=== PATIENT | female | born 1985 | race Two or more races ===

== ENCOUNTER 2019-03-10 12:18 | Emergency (ER) | payer MEDICAID ==
[2019-03-10 12:25] VITALS: BP 116/70
--- NOTE | 2019-03-10 13:14 | ER Document Report ---
HPI - HPI Patient complains to provider of: rash Time Seen by Provider: 03/10/19 13:03 Onset: Other Severity: Mild Pain Level: 1 Context: 33-year-old female presents with a rash to her her left foot, left third fourth fifth toe. Reports it started approximately 1 month ago after she was walking around barefooted outside. Reports she had a pool republican. No other symptoms such as fever vomiting diarrhea. She does report that he had some blisters when it first started. Thought it was a bug bite. Denies fever vomiting diarrhea. Scaling skin noted to the third fourth fifth in between webs of the toe. And around anterior and posterior of the foot. She reports that she applied liquid antifungal nail medicine with a brush once and it irritated her skin so she did not use anymore. Associated Symptoms: None Exacerbated by: Denies Relieved by: Denies Similar symptoms previously: No Recently seen / treated by doctor: No - CONSTITUTIONAL Constitutional: DENIES: Fever, Chills - GASTROINTESTINAL Gastrointestinal: DENIES: Abdominal Pain, Black / Bloody Stools - REPRODUCTIVE Reproductive: REPORTS: : Past Medical History - General Information source: Patient Last Menstrual Period: 25 weeks - Social History Smoking Status: Never Smoker Cigarette use (# per day): No Frequency of alcohol use: None Drug Abuse: None Lives with: Family Family History: None Patient has suicidal ideation: No Patient has homicidal ideation: No - Medical History Medical History: Negative Renal/ Medical History: Denies: Hx Peritoneal Dialysis Surgical Hx: Negative Vertical Provider Document - CONSTITUTIONAL Agree With Documented VS: Yes Exam Limitations: No Limitations General Appearance: WD/WN, No Apparent Distress - INFECTION CONTROL TRAVEL OUTSIDE OF THE [place] IN LAST 30 DAYS: No - HEENT HEENT: Atraumatic, Normocephalic - NECK Neck: Supple - RESPIRATORY Respiratory: No Respiratory Distress - MUSCULOSKELETAL/EXTREMETIES Musculoskeletal/Extremeties: MAEW, FROM, Non-Tender - NEURO Level of Consciousness: Awake, Alert, Appropriate Motor/Sensory: No Motor Deficit - DERM Integumentary: Warm, Dry, Rash Adult Front & Back Diagram: 1 - Patient with what appears to be fungal infection athlete's foot to the left fifth and fourth toe and in between the webs of the third fourth and fifth toe no erythema no swelling no blisters skin whitish,scaling Course - Re-evaluation Re-evalutation: 03/10/19 13:26 33-year-old female with what appears to be athlete's foot. She was instructed on antifungal cream. She was instructed to follow-up with her primary care provider as scheduled and also follow-up with the net lead developer for continuation of symptoms or worsening. She verbalized understanding on all instructions. - Vital Signs Vital signs: Temp Pulse Resp BP Pulse Ox 98.0 F 101 H 18 116/70 98 03/10/19 12:24 03/10/19 12:24 03/10/19 12:24 03/10/19 12:24 03/10/19 12:24 Discharge - Discharge Clinical Impression: Rash, Athlete's foot on left Condition: Stable Disposition: HOME, SELF-CARE Instructions: Athletes Foot ([facility]), Topical Antifungal ([facility]) Additional Instructions: *You have been treated rash to your left foot, athlete's foot *Applied Lamisil as directed on the container *Monitor your foot for signs of infection such as redness swelling warmth discharge *Keep your feet clean dry well wear clean socks *Follow up with a primary care provider as scheduled *Return to ED for signs of infection, worsening condition, changes, needs Prescriptions: Terbinafine HCl [Lamisil At] 12 gm TP BID #1 cream..g.
== END 2019-03-10 13:15 | disposition home or self-care (01) ==
LOC: ER 12:18
DX: O98.812 Other maternal infectious and parasitic diseases complicating pregnancy, second trimester (principal); B35.3 Tinea pedis; Z3A.25 25 weeks gestation of pregnancy
CPT/HCPCS: 99282

== ENCOUNTER 2020-03-30 11:55 | Outpatient (CLI) | payer MEDICAID ==
--- NOTE | 2020-03-30 13:22 | Non Stress Test Report ---
Non Stress Test Datetime Report Generated by CPN: 03/30/2020 13:21 DEMOGRAPHIC Test Number: 1 EGA NST: 33.4 INDICATION Indication for Study (NST) Other: tachycardia in office VITAL SIGNS Temperature - NST: 98.2 Pulse - NST: 102 RESP - NST: 16 NBPSYS NST: 96 NBPDIA NST: 54 MONITORING Monitor Explained: Monitor Explained; Test Explained; Patient Verbalized Understanding Time on Monitor: 03/30/2020 12:20 Time off Monitor: 03/30/2020 13:14 NST Duration: 54 NST INTERVENTIONS NST Interventions: PO Hydration; Reposition Patient Physician Notified NST: N Singh BABY A: [id number] BABY A Movement : Present Contraction Frequency : x1 FHR Baseline : 130 Accelerations : 15X15 Decelerations : None Variability : Moderate 6-25bpm NST Review: Meets Criteria for Reactive NST NST Review and Verified By : Sobeida Singleton RN NST Results: Reactive NST REPORT Report Trigger: Send Report
== END 2020-03-30 13:22 | disposition home or self-care (01) ==
LOC: LC 11:55
PROVIDERS: ATTEND Obstetrics & Gynecology
DX: O36.8330 Maternal care for abnormalities of the fetal heart rate or rhythm, third trimester, not applicable or unspecified (principal); Z3A.33 33 weeks gestation of pregnancy

== ENCOUNTER 2020-05-08 21:06 | Outpatient (CLI) | payer MEDICAID ==
[2020-05-08 22:19] LABS: APPEARANCE,URINE CLOUDY; BILIRUBIN,URINE NEGATIVE (NEGATIVE); COLOR,URINE YELLOW; GLUCOSE, URINE NEGATIVE (NEGATIVE); KETONES,URINE NEGATIVE (NEGATIVE); LEUKOCYTE ESTERASE,URINE MODERATE (NEGATIVE); NITRITE,URINE NEGATIVE (NEGATIVE); PROTEIN,URINE NEGATIVE (NEGATIVE); URINE SPECIFIC GRAVITY 1.012; UROBILINOGEN,URINE NEGATIVE mg/dL (<2.0)
[2020-05-08 22:41] LABS: URINE AMPHETAMINES SCREEN NEGATIVE; URINE BARBITURATES SCREEN NEGATIVE; URINE BENZODIAZEPINES SCREEN NEGATIVE; URINE COCAINE SCREEN NEGATIVE; URINE MARIJUANA (THC) SCREEN NEGATIVE; URINE METHADONE SCREEN NEGATIVE; URINE PHENCYCLIDINE SCREEN NEGATIVE
== END 2020-05-08 23:40 | disposition home or self-care (01) ==
LOC: LC 21:06
PROVIDERS: ATTEND Obstetrics & Gynecology
DX: O47.1 False labor at or after 37 completed weeks of gestation (principal); Z3A.39 39 weeks gestation of pregnancy
CPT/HCPCS: 59025; 80307; 81005; 84112

== ENCOUNTER 2020-05-10 16:20 | Outpatient (CLI) | payer MEDICAID ==
--- NOTE | 2020-05-10 16:27 | Non Stress Test Report ---
Non Stress Test Datetime Report Generated by CPN: 05/10/2020 16:27 DEMOGRAPHIC EGA NST: 39.1 INDICATION Indication for Study (NST) Other: labor check;r/o srom URINE RESULTS Urine Protein, NST: Negative Urine Ketones - NST: Negative Urine Glucose - NST: Negative Urine Blood - NST: Negative MONITORING Monitor Explained: Monitor Explained; Test Explained; Patient Verbalized Understanding Time on Monitor: 05/08/2020 21:30 Time off Monitor: 05/08/2020 22:59 NST Duration: 89 NST INTERVENTIONS NST Interventions: PO Hydration; Reposition Patient Physician Notified NST: Dr Chavez BABY A: [id number] BABY A Movement : Present Contraction Frequency : Irregular FHR Baseline : 120 Accelerations : 15X15 Decelerations : None Variability : Moderate 6-25bpm NST Review: Meets Criteria for Reactive NST NST Review and Verified By : Braulio Demarco RN NST Results: Reactive NST REPORT Report Trigger: Send Report
[2020-05-10 18:18] LABS: HEMOGLOBIN 10.6 g/dL (12.0-15.5); MEAN CORPUSCULAR HEMOGLOBIN 27.5 pg (27.0-33.4); MEAN CORPUSCULAR HGB CONC 33.1 g/dL (32.0-36.0); MEAN CORPUSCULAR VOLUME 83 fl (80-97); PLATELET COUNT 129 10^3/uL (150-450); RED BLOOD COUNT 3.84 10^6/uL (3.72-5.28); RED CELL DISTRIBUTION WIDTH 22.7 % (11.5-14.0); WHITE BLOOD COUNT 9.3 10^3/uL (4.0-10.5)
--- NOTE | 2020-05-10 18:28 | Non Stress Test Report ---
Non Stress Test Datetime Report Generated by CPN: 05/10/2020 18:27 DEMOGRAPHIC EGA NST: 39.3 INDICATION Indication for Study (NST) Other: Vaginal bleeding VITAL SIGNS Temperature - NST: 97.1 Pulse - NST: 83 RESP - NST: 18 NBPSYS NST: 101 NBPDIA NST: 66 MONITORING Monitor Explained: Monitor Explained; Test Explained; Patient Verbalized Understanding Time on Monitor: 05/10/2020 17:10 Time off Monitor: 05/10/2020 17:30 NST Duration: 20 NST INTERVENTIONS NST Interventions: PO Hydration BABY A Movement : Present Contraction Frequency : Occasional FHR Baseline : 135 Accelerations : 15X15 Decelerations : None Variability : Moderate 6-25bpm NST Review: Meets Criteria for Reactive NST NST Review and Verified By : Kimberly Dias RN NSEmory Results: Reactive NST REPORT Report Trigger: Send Report
== END 2020-05-10 18:25 | disposition home or self-care (01) ==
LOC: LC 16:20
PROVIDERS: ATTEND Obstetrics & Gynecology Gynecology
DX: O46.93 Antepartum hemorrhage, unspecified, third trimester (principal); Z3A.39 39 weeks gestation of pregnancy
CPT/HCPCS: 36415; 59025; 85027

== ENCOUNTER 2020-05-11 11:55 | Outpatient (CLI) | payer MEDICAID ==
[2020-05-11 12:55] LABS: APPEARANCE,URINE SLIGHTLY-CLOUDY; BILIRUBIN,URINE NEGATIVE (NEGATIVE); COLOR,URINE YELLOW; GLUCOSE, URINE NEGATIVE (NEGATIVE); KETONES,URINE NEGATIVE (NEGATIVE); LEUKOCYTE ESTERASE,URINE NEGATIVE (NEGATIVE); NITRITE,URINE NEGATIVE (NEGATIVE); PROTEIN,URINE NEGATIVE (NEGATIVE); URINE SPECIFIC GRAVITY 1.008; UROBILINOGEN,URINE NEGATIVE mg/dL (<2.0)
[2020-05-11 13:23] LABS: URINE AMPHETAMINES SCREEN NEGATIVE; URINE BARBITURATES SCREEN NEGATIVE; URINE BENZODIAZEPINES SCREEN NEGATIVE; URINE COCAINE SCREEN NEGATIVE; URINE MARIJUANA (THC) SCREEN NEGATIVE; URINE METHADONE SCREEN NEGATIVE; URINE PHENCYCLIDINE SCREEN NEGATIVE
[2020-05-11] MEDS ORDERED: HYDROXYZINE PAMOATE 50 MG CAPSULE PO ONE (13:39)
== END 2020-05-11 13:43 | disposition home or self-care (01) ==
LOC: LC 11:55
PROVIDERS: ATTEND Obstetrics & Gynecology
DX: O46.93 Antepartum hemorrhage, unspecified, third trimester (principal); O47.1 False labor at or after 37 completed weeks of gestation; Z3A.39 39 weeks gestation of pregnancy
CPT/HCPCS: 59025; 80307; 81005

== ENCOUNTER 2020-05-13 21:51 | Inpatient (IN) | payer MEDICAID ==
--- NOTE | 2020-05-13 21:53 | Non Stress Test Report ---
Non Stress Test Datetime Report Generated by CPN: 05/13/2020 21:53 DEMOGRAPHIC Test Number: 1 EGA NST: 39.4 INDICATION Indication for Study (NST) Other: Rule out labor VITAL SIGNS Temperature - NST: 97.1 Pulse - NST: 87 RESP - NST: 22 NBPSYS NST: 98 NBPDIA NST: 58 MONITORING Monitor Explained: Monitor Explained; Test Explained; Patient Verbalized Understanding Time on Monitor: 05/11/2020 12:16 Time off Monitor: 05/11/2020 13:27 NST Duration: 71 NST INTERVENTIONS NST Interventions: PO Hydration Physician Notified NST: Terry Bagley CNM BABY A: [id number] Movement : Present Contraction Frequency : Occasional with Irritabilty FHR Baseline : 115 Accelerations : 15X15 Decelerations : None Variability : Moderate 6-25bpm NST Review: Meets Criteria for Reactive NST NST Review and Verified By : ISIS Levy NST Results: Reactive NST REPORT Report Trigger: Send Report
[2020-05-13] MEDS ORDERED: LIDOCAINE 1% INJ-PF (10 MG/ML) 30 ML SDV ONE (22:00)
[2020-05-13] MEDS ORDERED: OXYTOCIN 10 UNIT/ML VIAL ONE (22:00)
[2020-05-13] MEDS ORDERED: MISOPROSTOL 0.2 MG TABLET ONE (22:00)
[2020-05-13] MEDS ORDERED: OXYTOCIN/0.9 % SODIUM CHLORIDE 30 UNIT/500 ML RTUINJ ONE (22:01)
[2020-05-13] MEDS ORDERED: RINGERS SOLUTION,LACTATED 1,000 ML IV ONE (22:11)
[2020-05-13] MEDS ORDERED: RINGERS SOLUTION,LACTATED 1,000 ML IV PRN (22:11)
[2020-05-13] MEDS ORDERED: BENZOCAINE/MENTHOL AEROSOL SPRAY 56 ML ONE (22:34)
[2020-05-13] MEDS ORDERED: IBUPROFEN 800 MG TABLET ONE (22:34)
[2020-05-13] MEDS ORDERED: ACETAMINOPHEN WITH CODEINE #3 TABLET ONE (22:34)
--- NOTE | 2020-05-13 22:37 | Admission Physical ---
Datetime Report Generated by CPN: 05/13/2020 22:37 CURRENT ADMISSION Chief Complaint: Uterine Contractions Indication for Induction: Not Applicable Admit Impression : Term, Intrauterine ; Active Labor; Intact Membranes Admit Plan: Admit to Unit; Initiate Labor Protocol ALLERGIES Medication Allergies: No Medication Allergies: No Known Allergies (05/11/2020) Latex: No Latex Allergies OBSTETRICAL HISTORY EDC: 05/14/2020 00:00 : 4 Para: 2 Term: 2 : 0 SAB: 0 IAB: 1 Ectopic: 0 Livin Cesareans: 0 VBACs: 0 Multiple Births: 0 Gestational Diabetes: No Rh Sensitization: No Incompetent Cervix: No AISHA: No Infertility: No ART Treatment: No Uterine Anomaly: No IUGR: No Hx Previous C/S: No Macrosomia: No Hx Loss/Stillborn: No PIH: No Hx : No Placenta Previa/Abruption: No Depression/PP Depression: No PTL/PROM: No Post Hemorrhage: No Current Procedures: Ultrasound; NST Obstetrical History Comments: G1: EAB 2005 G2: 09/09/2014; , male 5#5 oz G3: 05/2019; , female, 7# 10 oz G4: current (anemia) SEE RECORDS Alcohol: No Marijuana : No Cocaine: No Other Illicit Drugs: No Cigarettes: Never Smoker. 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 Surgery: No Heart Disease: No Hosp/Surgery: Yes Autoimmune Disorder: No Anesthetic Complications: No Kidney Disease: No Abnormal Pap Smear: No Neuro/Epilepsy: No Psychiatric Disorders: No Other Medical Diseases: No Hepatitis/Liver Disease: No Significant Family History: No Varicosities/Phlebitis: Yes Trauma/Violence : No Thyroid Dysfunction: No Medical History Comments: varicose veins in legs; appendectomy and Lasik; asthma (no inhaler use), childbirth x 2 INFECTIOUS HISTORY Gonorrhea: No Genital Herpes: Yes Chlamydia: No Tuberculosis: No Syphilis: No Hepatitis: No HIV/AIDS Exposure: No Rash or Viral Illness: No HPV: No Infectious History Comments: pt's partner has HSV and pt has positive IgG for HSV I PHYSICAL EXAM General: Normal HEENT: Normal Neurologic: Normal Thyroid: Deferred Heart: Normal Lungs: Normal Breast: Deferred Back: Normal Abdomen: Normal Genitourinary Exam: Normal Extremities: Normal DTRs: Normal Pelvic Type: Adequate Physical Exam Comments: Limited exam possible due to complete/complete/+1 no lesions noted. Vital Signs: Reviewed VAGINAL EXAM Dilatation: 10 Effacement: 100 Station: 1 Contraction Comments: q2 MEMBRANES Membranes: Intact FETUS A EGA: 39.6 Monitoring: External US FHR- Baseline: 145 Variability: Moderate 6-25bpm Accelerations: 15X15 Decelerations: None FHR Category: Category I Presentation: Vertex Admit Comment: 34yo at 39+6ega presents complete in active labor. She has a h/o rapid labors. GBS negative. Upon arrival SROM clear fluid. [facility] transfer at 18wks. has a h/o HSV. SHe has never had an outbreak and denies prodrome. Delivery imminent with SROM. Patient pushed x2. AFP pos for DS - maternal 21 negative. closely spaced . Desires BTL. h/o anemia. INFORMED CONSENT Informed Consent Obtained: Vaginal Delivery; Risks, Benefits and Alternatives Discussed Signature: with User ID: [email or web address]
[2020-05-13 22:49] LABS: ABSOLUTE EOSINOPHILS # (AUTO) 0.1 10^3/uL (0.0-0.6); ABSOLUTE LYMPHOCYTES (AUTO) 2.9 10^3/uL (0.5-4.7); ABSOLUTE MONOCYTES (AUTO) 0.7 10^3/uL (0.1-1.4); ABSOLUTE NEUT (AUTO) 6.4 10^3/uL (1.7-8.2); BASOPHILS % (AUTO) 0.2 % (0-2); HEMATOCRIT 34.4 % (36.0-47.0); HEMOGLOBIN 11.5 g/dL (12.0-15.5); LYMPHOCYTES % (AUTO) 28.8 % (13-45); MEAN CORPUSCULAR HEMOGLOBIN 27.6 pg (27.0-33.4); MEAN CORPUSCULAR HGB CONC 33.3 g/dL (32.0-36.0); MEAN CORPUSCULAR VOLUME 83 fl (80-97); MONOCYTES % (AUTO) 6.6 % (3-13); PLATELET COUNT 128 10^3/uL (150-450); RED BLOOD COUNT 4.15 10^6/uL (3.72-5.28); RED CELL DISTRIBUTION WIDTH 23.2 % (11.5-14.0); SEGMENTED NEUTROPHILS % (AUTO) 63.4 % (42-78); TOTAL CELLS COUNTED % (AUTO) 100 %; WHITE BLOOD COUNT 10.1 10^3/uL (4.0-10.5)
[2020-05-13] MEDS ORDERED: MEASLES,MUMPS&RUBELLA VACC/PF 0.5 ML VIAL SUBCUT PRN (22:49)
[2020-05-13] MEDS ORDERED: DIPH/PERTUSS(ACELL)/TETANUS VAC/PF 0.5 ML SYR (>=10YO) IM PRN (22:49)
[2020-05-13] MEDS ORDERED: ZOLPIDEM TARTRATE 5 MG TABLET PO PRN (22:49)
[2020-05-13] MEDS ORDERED: DIBUCAINE 1% OINTMENT 28 GM TP PRN (22:49)
[2020-05-13] MEDS ORDERED: PROMETHAZINE HCL 25 MG TABLET PO PRN (22:49)
[2020-05-13] MEDS ORDERED: ACETAMINOPHEN 325 MG TABLET PO PRN (22:49)
[2020-05-13] MEDS ORDERED: ACETAMINOPHEN WITH CODEINE #3 TABLET PO PRN ×2 (22:49)
[2020-05-13] MEDS ORDERED: MAGNESIUM HYDROXIDE SUSP 30 ML UDCUP PO PRN (22:49)
[2020-05-13] MEDS ORDERED: BENZOCAINE/MENTHOL AEROSOL SPRAY 56 ML TOP PRN (22:49)
[2020-05-13] MEDS ORDERED: OXYTOCIN/0.9 % SODIUM CHLORIDE 30 UNIT/500 ML RTUINJ IV PRN (22:49)
[2020-05-13] MEDS ORDERED: GLYCERIN/WITCH HAZEL LEAF 1 EACH MED..WIPE TP PRN (22:49)
[2020-05-13] MEDS ORDERED: NA PHOS,M-B/NA PHOS,DI-BA (ADULT) 133 ML ENEMA PR PRN (22:49)
[2020-05-13] MEDS ORDERED: PROMETHAZINE HCL INJ 25 MG/1 ML VIAL IV PRN (22:49)
[2020-05-13] MEDS ORDERED: PROMETHAZINE HCL 25 MG SUPP.RECT PR PRN (22:49)
[2020-05-13] MEDS ORDERED: PSEUDOEPHEDRINE HCL 30 MG TABLET PO PRN (22:49)
[2020-05-13] MEDS ORDERED: DIPHENHYDRAMINE HCL 25 MG CAPSULE PO PRN (22:49)
[2020-05-13] MEDS ORDERED: FAMOTIDINE 20 MG TABLET ONE (23:45)
[2020-05-13] MEDS: FAMOTIDINE 20 MG TABLET PO SCH (23:46)
--- NOTE | 2020-05-14 00:34 | Birth Certificate Data ---
Cert Data Datetime Report Generated by CPN: 05/14/2020 00:33 CERTIFICATE DATA Delivery Provider: Tiara Sandy MD (03/30/2020 12:13:Christiana Demarco RN) 47a. Care: Yes (03/30/2020 12:13:Edwige Coronado RN) 47b. Date of First Visit: 11/02/2019 00:00 (03/30/2020 12:13:Christiana Demarco RN) 47c. Date of Last Visit: 05/10/2020 00:00 (03/30/2020 12:13:Edwige Coronado RN) 47d. Number of Visits: 10 (03/30/2020 12:13:Edwige Coronado RN) 48a. Number of Prev Live Births: 2 (03/30/2020 12:13:Christiana Demarco RN) 48b. Now Livin (03/30/2020 12:13:Amena Oropeza RN) 48c. Live Births Now : 0 (03/30/2020 12:13:QS system process) 48e. Losses: 1 (03/30/2020 12:13:Edwige Coronado RN) 48f. Date of Last Preg Loss: 09/26/2005 00:00 (03/30/2020 12:13:Edwige Coronado RN) RISK FACTORS IN THIS 49a. Diabetes: No (03/30/2020 12:13:Beba Mai RN) 49b. Hypertension: No (03/30/2020 12:13:Beba Mai RN) 49c. Previous Births: 0 (03/30/2020 12:13:Amena Oropeza RN) 49d. Stillborns: No (03/30/2020 12:13:Christiana Demarco RN) 49d. IUGR: No (03/30/2020 12:13:Beba Mai RN) 49e. Infertility Treatment: No (03/30/2020 12:13:Beba Mai RN) 49f. Previous Cesareans: 0 (03/30/2020 12:13:Christiana Demarco RN) Mother's Height 50b. Height Inches: 65 (03/30/2020 12:08:QS system process) Mother's Weight 51a. Pre- Weight (lbs): 208 (03/30/2020 12:13:Edwige Coronado RN) 51b. Weight at Delivery (lbs): 227 (05/14/2020 00:29:QS system process) 52. Dt Last Normal Menses Began: 08/08/2019 00:00 (03/30/2020 12:13:Amena Oropeza RN) Infections Present/Treated 53a. Gonorrhea: No (03/30/2020 12:13:Christiana Demarco RN) 53b. Syphilis: No (03/30/2020 12:13:Christiana Demarco RN) 53c. Chlamydia: No (03/30/2020 12:13:Christiana Demarco RN) 53d. Hepatitis B: No (03/30/2020 12:13:Christiana Demarco RN) Results this Hospital Visit: Negative (03/30/2020 12:13:Christiana Demarco RN) 53e. Hepatitis C: Negative (03/30/2020 12:13:Christiana Ring, RN) 53h. Mother Tested for HBsAG: Yes (03/30/2020 12:13:Christiana Ring, RN) 53j. Test Result: Negative (03/30/2020 12:13:Christiaan Ring, RN) Obstetric Procedures 54a, b, c. Obstetric Procedures: Ultrasound; NST (03/30/2020 12:13:Beba Mai, RN) Cigarette Smoking Cigarette Smoking: Never Smoker. [id number] (03/30/2020 12:13:Christiana Ring, RN) Onset of Labor 56a. PROM >12 Hrs: 0.07 (03/30/2020 12:13:QS system process) 56b. Precipitous Labor <3 Hrs: 0 (03/30/2020 12:13:QS system process) 56c. Prolonged Labor > 20 Hrs: 0 (03/30/2020 12:13:QS system process) 57a. Induction of Labor: N/A (03/30/2020 12:13:Christiana Demarco RN) 57c. Non-Vertex Presentation A: Vertex (03/30/2020 12:13:Christiana Demarco RN) 57d. Steroids - Lung Mat: None (03/30/2020 12:13:Tiara Sandy MD ([facility])) 57d. Steroids - Lung Mat: Not Applicable (03/30/2020 12:13:Tiara Sandy MD ([facility])) 57g. Moderate/Heavy Meconium: Clear (05/13/2020 22:16:Christiana Demarco RN) 57h. Intolerance of Labor: N/A (03/30/2020 12:13:Christiana Demarco RN) : N/A (03/30/2020 12:13:Christiana Demarco RN) 57i. Epidural/Spinal Anesthesia: None (03/30/2020 12:13:Christiana Demarco RN) Method of Delivery 58a. Forceps - Unsuccessful A: N/A (03/30/2020 12:13:Christiana Ring, RN) 58b. Vacuum - Unsuccessful A: N/A (03/30/2020 12:13:Christiana Ring, RN) 58c. Presentation at 58c. Presentation at - A : Vertex (03/30/2020 12:13:Christiana Ring, RN) 58c. Presentation at - A : N/A (03/30/2020 12:13:Christiana Ring, RN) 58c. Presentation at - A : Cephalic (05/13/2020 21:55:Beba Sergei, RN) Final Route and Method of Del 58d. Baby A Route/Delivery: Vaginal (05/13/2020 22:20:Christiana Ring, RN) 58e. Trial of Labor Attempted: No (03/30/2020 12:13:Christiana Demarco, RN) 58e. Trial of Labor Attempted A: N/A (03/30/2020 12:13:Christiana Demarco RN) 58e. Trial of Labor Attempted B: N/A (03/30/2020 12:13:Christiana Demarco, RN) Maternal Morbidity 59b. 3rd or 4th Degree Lacs: Vaginal (03/30/2020 12:13:Tiara Sandy MD ([facility])) Birthweight Baby A: 3180 (03/30/2020 12:13:Beba Mai RN) 60a. Pounds : 7 (03/30/2020 12:13:QS system process) 60b. Ounces: 0 (03/30/2020 12:13:QS system process) 61. GA at Delivery Baby A: 39.6 (03/30/2020 12:13:Christiana Ring, RN) : Full Term- 39- 40.6 Weeks (03/30/2020 12:13:QS system process) 62a. 5 Minute Baby A: 9 (03/30/2020 12:13:QS system process)
--- NOTE | 2020-05-14 00:34 | Delivery Summary ---
Del Sum A-C Datetime Report Generated by CPN: 05/14/2020 00:33 DELIVERY PERSONNEL DELIVERY PERSONNEL: [id number] Delivery Doctor:: Tiara Sandy MD Labor and Delivery Nurse:: Beba Mai RNbench jeweler Nurse:: Christiana Demarco RN Refuse Collector Supervisor/SUPERVISOR TREATING AND PUMPING: Natividad Green, ST MATERNAL INFORMATION Delivery Anesthesia: None Medications After Delivery: Pitocin 30 Units in 500ml NS/D5W Estimated Blood Loss (ml): 100 Delivery QBL: 150 Maternal Complications: Precipitous Labor (<3hrs) Provider Comments: VFI delivered in DARIELA presentation with tight nuchal cord and short cord. Shoulders and body delivered without difficulty. cord doubly clamped and cut and infant to maternal abdomen. Placenta delivered intact spontaneously with trailing membranes removed manually. FF at U. Good hemostasis after repair of superficial vaginal abrasion. Mother and baby stable upon provider leaving the room. LABOR SUMMARY EDC: 05/14/2020 00:00 No. Babies in Womb: 1 Attempted: No Labor Anesthesia: None LABOR INFORMATION Reason for Induction: Not Applicable Onset of Labor: 05/13/2020 21:30 Complete Dilatation: 05/13/2020 22:17 Oxytocin: N/A Group B Beta Strep: Negative Steroids Given: None Reason Steroids Not Administered: Not Applicable MEMBRANES Membranes Rupture Method: Artificial Rupture of Membranes: 05/13/2020 22:16 Length of Rupture (hr): 0.07 Amniotic Fluid Color: Clear Amniotic Fluid Amount: Moderate STAGES OF LABOR Stage 1 hr: 0 Stage 1 min: 47 Stage 2 hr: 0 Stage 2 min: 3 Stage 3 hr: 0 Stage 3 min: 3 Total Time in Labor hr: 0 Total Time in Labor min: 53 VAGINAL DELIVERY Episiotomy: None Laceration #1: Vaginal Laceration Extension #1: N/A Laceration Repair: Yes Laceration Repair Note: superficial laceration repaired for hemostasis. Sponge Count Correct: Yes Sharps Count Correct: Yes CSECTION DELIVERY Primary Indication: N/A Secondary Indication: N/A CSection Incidence: N/A Labor: N/A Elective: N/A CSection Incision: N/A BABY A INFORMATION Delivery Date/Time: 05/13/2020 22:20 Method of Delivery: Vaginal Nurse Controlled Delivery: No Born in Route : No : N/A Forceps: N/A Vacuum Extraction: N/A Shoulder Dystocia : No PRESENTATION/POSITION BABY A Presentation: Cephalic Cephalic Presentation: Vertex Vertex Position: Left Occipital Anterior Breech Presentation: N/A PLACENTA INFORMATION BABY A Placenta Delivery Time : 05/13/2020 22:23 Placenta Method of Delivery: Spontaneous Placenta Status: Delivered SCORES BABY A Heart Rate 1 min: >100 bpm Resp Effort 1 min: Good Cry Reflex Irritability 1 min: Cough or Sneeze or Pulls Away Muscle Tone 1 min: Active Motion Color 1 min: Body [place], Extremities Blue SCORE 1 MIN: 9 Heart Rate 5 min: >100 bpm Resp Effort 5 min: Good Cry Reflex Irritability 5 min: Cough or Sneeze or Pulls Away Muscle Tone 5 min: Active Motion Color 5 min: Body [place], Extremities Blue Resuscitation Effort 5 min: Tactile Stimulation SCORE 5 MIN: 9 INFORMATION BABY A Gestational Age at Delivery: 39.6 Gestational Status: Full Term- 39- 40.6 Weeks Infant Outcome : Liveborn Condition : Stable Infant Sex: Female IDENTIFICATION BABY A Infant Verification Date/Time: 05/13/2020 22:40 ID Band Number: [id number] Mother's Name Verified: Yes Infant RN Verifying : Sobeida Hassan ISIS Additional Verifying Personnel: Misael SecurSolutionsDavid RN WEIGHT/LENGTH BABY A Birthweight (gm): 3180 Infant Weight (lb): 7 Infant Weight (oz): 0 Length (in): 19.25 Infant Length (cm): 48.90 CORD INFORMATION BABY A No. 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
[2020-05-14 03:06] LABS: BILIRUBIN,URINE NEGATIVE (NEGATIVE); GLUCOSE, URINE 50 mg/dL (NEGATIVE); KETONES,URINE NEGATIVE (NEGATIVE); LEUKOCYTE ESTERASE,URINE NEGATIVE (NEGATIVE); NITRITE,URINE NEGATIVE (NEGATIVE); PROTEIN,URINE 100 mg/dL (NEGATIVE); URINE SPECIFIC GRAVITY 1.005; UROBILINOGEN,URINE NEGATIVE mg/dL (<2.0)
[2020-05-14 03:07] LABS: APPEARANCE,URINE CLOUDY; COLOR,URINE RED
[2020-05-14 03:18] LABS: URINE AMPHETAMINES SCREEN NEGATIVE; URINE BARBITURATES SCREEN NEGATIVE; URINE BENZODIAZEPINES SCREEN NEGATIVE; URINE COCAINE SCREEN NEGATIVE; URINE MARIJUANA (THC) SCREEN NEGATIVE; URINE METHADONE SCREEN NEGATIVE; URINE PHENCYCLIDINE SCREEN NEGATIVE
[2020-05-14] MEDS: IBUPROFEN 800 MG TABLET PO SCH ×3 (05:38→21:23)
[2020-05-14 07:21] LABS: HEMATOCRIT 30.7 % (36.0-47.0); HEMOGLOBIN 10.1 g/dL (12.0-15.5); MEAN CORPUSCULAR HEMOGLOBIN 27.5 pg (27.0-33.4); MEAN CORPUSCULAR VOLUME 83 fl (80-97); PLATELET COUNT 137 10^3/uL (150-450); RED BLOOD COUNT 3.68 10^6/uL (3.72-5.28); RED CELL DISTRIBUTION WIDTH 23.2 % (11.5-14.0)
[2020-05-14] MEDS: PRENATAL VITAMIN W DHA CAPSULE PO SCH (11:07)
[2020-05-14] MEDS: SENNOSIDES/DOCUSATE 8.6-50 MG 1 EACH TABLET PO SCH (11:08)
[2020-05-14] MEDS: DOCUSATE SODIUM 100 MG CAPSULE PO SCH ×2 (11:08→18:02)
[2020-05-14] MEDS: FAMOTIDINE 20 MG TABLET PO SCH ×2 (11:08→21:23)
[2020-05-14] MEDS: FERROUS SULFATE 325 MG TABLET PO SCH ×2 (11:08→18:02)
--- NOTE | 2020-05-14 11:30 | PDOC PROGRESS REPORT ---
Subjective-OB Progress Note for:: 05/14/20 Subjective: reports bleeding slowing, pain controlled with current meds. denies needs. Physical Exam (OB) Vital Signs: Temp Pulse Resp BP Pulse Ox 97.7 F 72 18 96/60 L 97 05/14/20 07:37 05/14/20 07:37 05/14/20 07:37 05/14/20 07:37 05/14/20 07:37 Intake & Output 05/13/20 05/14/20 05/15/20 06:59 06:59 06:59 Intake Total 183 Output Total 250 Balance -67 Weight 103.192 kg - Maternal Morbidity 59. Maternal Morbidity (serious complications experinced by the mother associated with labor and delivery: None of the above - Abdomen Description: Soft, Round Hernia Present: No Fundal Description: Firm, Midline Fundal Height: u/u - u/2 - Abdominal Distension: No distension Tenderness: Nontender - Extremities Lower extremities: Shaina's sign - neg Calf: Normal, Nontender Objective-Diagnostic Laboratory: 05/14/20 06:50 05/13/20 05/13/20 05/14/20 22:39 22:39 01:30 WBC 10.1 RBC 4.15 Hgb 11.5 L Hct 34.4 L MCV 83 MCH 27.6 MCHC 33.3 RDW 23.2 H Plt Count 128 L Seg Neutrophils % 63.4 Urine Color RED Urine Appearance CLOUDY Urine pH 7.0 Ur Specific [place] 1.005 Urine Protein 100 H Urine Glucose (UA) 50 H Urine Ketones NEGATIVE Urine Blood LARGE H Urine Nitrite NEGATIVE Ur Leukocyte Esterase NEGATIVE Urine WBC (Auto) 92 Urine RBC (Auto) >182 Blood Type A POSITIVE Antibody Screen NEGATIVE 05/14/20 06:50 WBC 13.0 H RBC 3.68 L Hgb 10.1 L Hct 30.7 L MCV 83 MCH 27.5 MCHC 33.0 RDW 23.2 H Plt Count 137 L Seg Neutrophils % Urine Color Urine Appearance Urine pH Ur Specific [place] Urine Protein Urine Glucose (UA) Urine Ketones Urine Blood Urine Nitrite Ur Leukocyte Esterase Urine WBC (Auto) Urine RBC (Auto) Blood Type Antibody Screen Assessment and Plan(PN) - Assessment and Plan (1) Active labor at term Is this a current diagnosis for this admission?: Yes (2) Anemia affecting Is this a current diagnosis for this admission?: Yes (3) Gestational thrombocytopenia Is this a current diagnosis for this admission?: Yes (4) Precipitous delivery, delivered (current hospitalization) Is this a current diagnosis for this admission?: Yes - Time Spent with Patient Time with patient: Less than 15 minutes Medications reviewed and adjusted accordingly: Yes - Disposition Anticipated Discharge Disposition: Home, Self Care Anticipated Discharge Timeframe: within 24 hours
[2020-05-15] MEDS: IBUPROFEN 800 MG TABLET PO SCH (05:31)
[2020-05-15 07:55] VITALS: BP 103/62
[2020-05-15] MEDS: PRENATAL VITAMIN W DHA CAPSULE PO SCH (10:15)
[2020-05-15] MEDS: FAMOTIDINE 20 MG TABLET PO SCH (10:16)
[2020-05-15] MEDS: SENNOSIDES/DOCUSATE 8.6-50 MG 1 EACH TABLET PO SCH (10:16)
[2020-05-15] MEDS: FERROUS SULFATE 325 MG TABLET PO SCH (10:16)
[2020-05-15] MEDS: DOCUSATE SODIUM 100 MG CAPSULE PO SCH (10:16)
--- NOTE | 2020-05-15 11:03 | PDOC DISCHARGE SUMMARY ---
Impression - Admit/DC Date/PCP Admission Date/Primary Care Provider: 05/13/20 22:01 KAREEM PAVON MD Discharge Date: 05/15/20 - Discharge Diagnosis (1) Active labor at term Is this a current diagnosis for this admission?: Yes (2) Anemia affecting Is this a current diagnosis for this admission?: Yes (3) Gestational thrombocytopenia Is this a current diagnosis for this admission?: Yes (4) Precipitous delivery, delivered (current hospitalization) Is this a current diagnosis for this admission?: Yes - Additional Information Discharge Diet: Regular Discharge Activity: Activity As Tolerated, Pelvic Rest Referrals: [facility] [Provider Group] (Please call and schedule a 4 week f/u at [facility].) Prescriptions: Ibuprofen [Motrin 800 mg Tablet] 800 mg PO Q8HP PRN #60 tablet PRN Reason: Home Medications: Pnv No.95/Ferrous Fum/Folic AC [ Vitamins Tablet] 1 each PO DAILY 06/12/19 Ibuprofen [Motrin 800 mg Tablet] 800 mg PO Q8HP PRN #60 tablet 05/15/20 Hospital Course 59. Maternal Morbidity (serious complications experinced by the mother associated with labor and delivery: None of the above Results Laboratory Results: WBC 13.0 10^3/uL (4.0-10.5) H 05/14/20 06:50 RBC 3.68 10^6/uL (3.72-5.28) L 05/14/20 06:50 Hgb 10.1 g/dL (12.0-15.5) L 05/14/20 06:50 Hct 30.7 % (36.0-47.0) L 05/14/20 06:50 MCV 83 fl (80-97) 05/14/20 06:50 MCH 27.5 pg (27.0-33.4) 05/14/20 06:50 MCHC 33.0 g/dL (32.0-36.0) 05/14/20 06:50 RDW 23.2 % (11.5-14.0) H 05/14/20 06:50 Plt Count 137 10^3/uL (150-450) L 05/14/20 06:50 Lymph % (Auto) 28.8 % (13-45) 05/13/20 22:39 Loving % (Auto) 6.6 % (3-13) 05/13/20 22:39 Eos % (Auto) 1.0 % (0-6) 05/13/20 22:39 Baso % (Auto) 0.2 % (0-2) 05/13/20 22:39 Absolute Neuts (auto) 6.4 10^3/uL (1.7-8.2) 05/13/20 22:39 Absolute Lymphs (auto) 2.9 10^3/uL (0.5-4.7) 05/13/20 22:39 Absolute Monos (auto) 0.7 10^3/uL (0.1-1.4) 05/13/20 22:39 Absolute Eos (auto) 0.1 10^3/uL (0.0-0.6) 05/13/20 22:39 Absolute Basos (auto) 0.0 10^3/uL (0.0-0.2) 05/13/20 22:39 Seg Neutrophils % 63.4 % (42-78) 05/13/20 22:39 Urine Color RED 05/14/20 01:30 Urine Appearance CLOUDY 05/14/20 01:30 Urine pH 7.0 (5.0-9.0) 05/14/20 01:30 Ur Specific Summers 1.005 05/14/20 01:30 Urine Protein 100 mg/dL (NEGATIVE) H 05/14/20 01:30 Urine Glucose (UA) 50 mg/dL (NEGATIVE) H 05/14/20 01:30 Urine Ketones NEGATIVE mg/dL (NEGATIVE) 05/14/20 01:30 Urine Blood LARGE (NEGATIVE) H 05/14/20 01:30 Urine Nitrite NEGATIVE (NEGATIVE) 05/14/20 01:30 Urine Bilirubin NEGATIVE (NEGATIVE) 05/14/20 01:30 Urine Urobilinogen NEGATIVE mg/dL (<2.0) 05/14/20 01:30 Ur Leukocyte Esterase NEGATIVE (NEGATIVE) 05/14/20 01:30 Urine WBC (Auto) 92 /HPF 05/14/20 01:30 Urine RBC (Auto) >182 /HPF 05/14/20 01:30 Urine Ascorbic Acid NEGATIVE (NEGATIVE) 05/14/20 01:30 Urine Opiates Screen UNCONFIRMED POSITIVE 05/14/20 01:30 Urine Methadone Screen NEGATIVE 05/14/20 01:30 Ur Barbiturates Screen NEGATIVE 05/14/20 01:30 Ur Phencyclidine Scrn NEGATIVE 05/14/20 01:30 Ur Amphetamines Screen NEGATIVE 05/14/20 01:30 U Benzodiazepines Scrn NEGATIVE 05/14/20 01:30 Urine Cocaine Screen NEGATIVE 05/14/20 01:30 U Marijuana (THC) Screen NEGATIVE 05/14/20 01:30 Blood Type A POSITIVE 05/13/20 22:39 Antibody Screen NEGATIVE 05/13/20 22:39 Plan Plan of Treatment: follow up in 4 weeks at [facility] for post check
== END 2020-05-15 11:44 | disposition home or self-care (01) | DRG 806 ==
LOC: LC 21:51 → LR 22:01 → 2S 05-14 00:51
PROVIDERS: ADMIT Student in an Organized Health Care Education/Training Program; ATTEND Student in an Organized Health Care Education/Training Program
PROC: 10E0XZZ Delivery of Products of Conception, External Approach (ICD-10-PCS; principal; 2020-05-13)
PROC: 10907ZC Drainage of Amniotic Fluid, Therapeutic from Products of Conception, Via Natural or Artificial Opening (ICD-10-PCS; 2020-05-13)
PROC: 0HQ9XZZ Repair Perineum Skin, External Approach (ICD-10-PCS; 2020-05-13)
DX: O62.3 Precipitate labor (principal); O71.4 Obstetric high vaginal laceration alone; Z37.0 Single live birth; O99.12 Other diseases of the blood and blood-forming organs and certain disorders involving the immune mechanism complicating childbirth; O98.32 Other infections with a predominantly sexual mode of transmission complicating childbirth; D69.6 Thrombocytopenia, unspecified; Z3A.39 39 weeks gestation of pregnancy; O69.3XX0 Labor and delivery complicated by short cord, not applicable or unspecified; O69.81X0 Labor and delivery complicated by cord around neck, without compression, not applicable or unspecified; O99.02 Anemia complicating childbirth
CPT/HCPCS: 36415; 59025; 80307; 81001; 85025; 85027; 86592; 86850; 86900; 86901; J2590; J3490